=== PATIENT | female | born 1995 | race Caucasian/White ===

== ENCOUNTER 2017-01-31 20:56 | Emergency (ER) | payer BC ==
[2017-01-31 21:17] VITALS: BP 114/71
[2017-01-31] MEDS ORDERED: HYDROcodone/ACETAMIN 5-325 MG* 1 TAB PO ONE (21:55)
[2017-01-31] MEDS ORDERED: Amoxicillin CAP* 500 MG PO ONE (21:56)
--- NOTE | 2017-01-31 22:03 | UC ---
Throat Pain/Nasal Percy HPI - HPI Summary HPI Summary: ST with swollen lymph nodes, fever, malaise starting 2-3 days ago. Was seen at PCP yesterday, had negative RST and negative monospot, was put on a z-arturo. Feeling worse today. 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 Negative: Sinus Discomfort, Nasal Discharge - Allergies/Home Medications Allergies/Adverse Reactions: Allergies Allergy/AdvReac Type Severity Reaction Status Date / Time No Known Allergies Allergy Verified 01/31/17 21:17 Home Medications: Home Medications FLUoxetine CAP* [Prozac CAP*] 10 mg PO DAILY 01/31/17 [History Confirmed ] Ibuprofen TAB* [Advil TAB*] 400 mg PO PRN 01/31/17 [History] PMH/Surg Hx/FS Hx/Imm Hx Previously Healthy: Yes - Surgical History Surgical History: None - Family History Known Family History: Negative: Blood Disorder - Social History Lives: With Family Alcohol Use: None Substance Use Type: None Smoking Status (MU): Never Smoked Tobacco - Immunization History Vaccination Up to Date: Yes Review of Systems Constitutional: Fever, Chills, Fatigue Skin: Negative Eyes: Negative ENT: Sore Throat Respiratory: Negative Cardiovascular: Negative Gastrointestinal: Negative Genitourinary: Negative Motor: Negative Neurovascular: Negative Musculoskeletal: Negative Neurological: Negative Psychological: Negative All Other Systems Reviewed And Are Negative: Yes Physical Exam Triage Information Reviewed: Yes Appearance: Well-Appearing, Pain Distress - mod Vital Signs: Initial Vital Signs Temp 97.2 F 01/31/17 21:13 Pulse 120 01/31/17 21:13 Resp 16 01/31/17 21:13 BP 114/71 01/31/17 21:13 Pulse Ox 98 01/31/17 21:13 Vital Signs Reviewed: Yes Eye Exam: Normal Eyes: Positive: Conjunctiva Clear ENT: Positive: Pharyngeal erythema, TMs normal, Tonsillar swelling, Muffled/ hoarse voice - muffled voice Dental Exam: Normal Neck: Positive: Enlarged Nodes @ - tonsillar Respiratory Exam: Normal Respiratory: Positive: Chest non-tender, Lungs clear, Normal breath sounds, No respiratory distress, No accessory muscle use Cardiovascular: Positive: No Murmur, Tachycardia Musculoskeletal Exam: Normal Neurological Exam: Normal Neurological: Positive: Alert Psychological Exam: Normal Skin Exam: Normal Throat Pain/Nasal Course/Dx - Differential Dx/Diagnosis Provider Diagnoses: tonsillitis Discharge - Discharge Plan Condition: Stable Disposition: HOME Prescriptions: Amoxicillin (*) [Amoxicillin 875 MG (*)] 875 mg PO BID #13 tab Patient Education Materials: Tonsillitis (ED) Referrals: Jose G Denney MD [Primary Care Provider] - Additional Instructions: Your rapid strep here was also negative -- combined with not responding to the original antibiotic, it is very likely you do not have strep. I suspect mononucleosis, however you may need to wait another week before definitive bloodwork can be done. Go to the emergency department if you have difficulty with breathing or if you cannot swallow food or liquids. You should also be seen if your fevers are worsening in length and intensity or if you are feeling significantly worse in any way.
== END 2017-01-31 22:12 | disposition home or self-care (01) ==
LOC: UCEAST 20:56
DX: J03.90 Acute tonsillitis, unspecified (principal)
CPT/HCPCS: 87070; 87651; 99212; A9270-GY; G0463

== ENCOUNTER 2017-08-05 20:43 | Emergency (ER) | payer BC ==
--- NOTE | 2017-08-05 20:46 | UC ---
Throat Pain/Nasal Percy HPI - HPI Summary HPI Summary: 21 year old female presents with complains of sinus congestion, sore throat and tonsilar swelling - History of Current Complaint Stated Complaint: THROAT PAIN Time Seen by Provider: 08/05/17 20:45 Hx Obtained From: Patient Hx Last Menstrual Period: NOW ?: Yes Onset/Duration: Sudden Onset Severity: Moderate Pain Scale Used: 0-10 Numeric - 5 Cough: Nonproductive Associated Signs & Symptoms: Positive: Dysphagia - Allergies/Home Medications Allergies/Adverse Reactions: Allergies Allergy/AdvReac Type Severity Reaction Status Date / Time No Known Allergies Allergy Verified 01/31/17 21:17 PMH/Surg Hx/FS Hx/Imm Hx Previously Healthy: Yes - Surgical History Surgical History: None - Family History Known Family History: Negative: Blood Disorder - Social History Alcohol Use: None Substance Use Type: None Smoking Status (MU): Never Smoked Tobacco - Immunization History Vaccination Up to Date: Yes Review of Systems Constitutional: Negative Skin: Negative Eyes: Negative ENT: Sore Throat, Nasal Discharge, Sinus Congestion, Sinus Pain/Tenderness Respiratory: Negative Cardiovascular: Negative Gastrointestinal: Negative Genitourinary: Negative Motor: Negative Neurovascular: Negative Musculoskeletal: Negative Neurological: Negative Psychological: Negative All Other Systems Reviewed And Are Negative: Yes Physical Exam Triage Information Reviewed: Yes Vital Signs Reviewed: Yes Eye Exam: Normal ENT: Positive: Pharyngeal erythema, Nasal congestion, Nasal drainage, Tonsillar swelling - left, Sinus tenderness Dental Exam: Normal Neck exam: Normal Neck: Positive: 1 Respiratory Exam: Normal Cardiovascular Exam: Normal Abdominal Exam: Normal Musculoskeletal Exam: Normal Neurological Exam: Normal Psychological Exam: Normal Skin Exam: Normal Throat Pain/Nasal Course/Dx - Differential Dx/Diagnosis Provider Diagnoses: left tonsilar swelling. pharyngitis. sinusitis Discharge - Discharge Plan Condition: Stable Disposition: HOME Prescriptions: Amoxicillin PO (*) [Amoxicillin 875 MG (*)] 875 mg PO BID #20 tab LoraTADine TAB(NF) [Claritin 10 MG TAB(NF)] 10 mg PO DAILY #30 tab Magic M W2 Roby/Maal/Nyst/Lido* 5 ml SWISH SPIT QID PRN #120 ml PRN Reason: Pain Methylprednisolone [Medrol Dosepak 4 MG*] 4 mg PO .SEE SHANTEL INSTRUCTION #21 tab Patient Education Materials: Pharyngitis (ED) Referrals: Jose G Denney MD [Medical Doctor] -
[2017-08-05 20:52] VITALS: BP 111/65
[2017-08-05] MEDS ORDERED: Amoxicillin PO (*) 500 MG CAP PO ONE ×2 (21:32→21:38)
[2017-08-05] MEDS ORDERED: LoraTADine TAB(NF) 10 MG TAB (AUTOSUB to CETIRIZINE) PO ONE ×2 (21:33→21:38)
[2017-08-05] MEDS ORDERED: Lidocaine 2% VISCOUS* 15 ML UDC SWISH SPIT ONE ×2 (21:33→21:37)
[2017-08-05] MEDS ORDERED: predniSONE TAB* 10 MG PO ONE ×2 (21:33→21:40)
[2017-08-05] MEDS ORDERED: Al Hydrox/Mg Hydrox/Simet LIQ* 30 ML UDC PO ONE ×2 (21:34→21:39)
--- NOTE | 2017-08-08 17:19 | ED ---
Progress - Progress Note Progress Note: normal rocío. can stop abx.
== END 2017-08-05 21:50 | disposition home or self-care (01) ==
LOC: UCEAST 20:43
DX: O99.89 Other specified diseases and conditions complicating pregnancy, childbirth and the puerperium (principal); J02.9 Acute pharyngitis, unspecified; J32.9 Chronic sinusitis, unspecified
CPT/HCPCS: 87070; 87651; 99212; A9270-GY; G0463; J7512

== ENCOUNTER 2018-06-11 09:26 | Emergency (ER) | payer BC ==
[2018-06-11 09:36] VITALS: BP 124/61
--- NOTE | 2018-06-11 10:13 | UC ---
Throat Pain/Nasal Percy HPI - HPI Summary HPI Summary: 22 yo WF c/o throat pain x 1 day, denies f/c/body aches/cough - History of Current Complaint Chief Complaint: UCGeneralIllness Stated Complaint: THROAT COMPLAINT Time Seen by Provider: 06/11/18 09:27 Hx Obtained From: Patient Hx Last Menstrual Period: 3 weeks ago Onset/Duration: Sudden Onset Severity: Moderate Pain Intensity: 5 - Allergies/Home Medications Allergies/Adverse Reactions: Allergies Allergy/AdvReac Type Severity Reaction Status Date / Time No Known Allergies Allergy Verified 06/11/18 09:34 Home Medications: Home Medications Iron 1 dose PO DAILY 06/11/18 [History Confirmed 06/11/18] PMH/Surg Hx/FS Hx/Imm Hx Previously Healthy: Yes - Surgical History Surgical History: None - Family History Known Family History: Negative: Blood Disorder - Social History Alcohol Use: Weekly Substance Use Type: None Smoking Status (MU): Never Smoked Tobacco - Immunization History Vaccination Up to Date: Yes Review of Systems Constitutional: Negative Skin: Negative Eyes: Negative ENT: Sore Throat Respiratory: Negative Cardiovascular: Negative Gastrointestinal: Negative Genitourinary: Negative Motor: Negative Neurovascular: Negative Musculoskeletal: Negative Neurological: Negative Psychological: Negative All Other Systems Reviewed And Are Negative: Yes Physical Exam - Summary Physical Exam Summary: Vital Signs Reviewed: Yes Appearance: Positive: Well-Appearing Skin: Positive: Warm Head/Face: Positive: Normal Head/Face Inspection Eyes: Positive: EOMI, CATINA ENT: Positive: Hearing grossly normal, Pharynx mildly erythematous w/o exudates , TMs normal Neck: Positive: Supple, No Lymphadenopathy Respiratory/Lung Sounds: Positive: Clear to Auscultation Cardiovascular: Positive: RRR, S1, S2 Abdomen Description: Positive: Nontender, Soft Bowel Sounds: Positive: Present Musculoskeletal: Positive: Normal Neurological: Positive: CN Intact II-III Psychiatric: Positive: Normal Vital Signs: Initial Vital Signs Temp 36.6 C 06/11/18 09:28 Pulse 81 06/11/18 09:28 Resp 16 06/11/18 09:28 BP 124/61 06/11/18 09:28 Pulse Ox 98 06/11/18 09:28 Throat Pain/Nasal Course/Dx - Course Assessment/Plan: Rapid strep neg - Differential Dx/Diagnosis Provider Diagnoses: acute pharyngitis Discharge - Sign-Out/Discharge Documenting (check all that apply): Patient Departure All imaging exams completed and their final reports reviewed: No Studies - Discharge Plan Condition: Stable Disposition: HOME Patient Education Materials: Pharyngitis (ED) Referrals: Tammy Calvin [Primary Care Provider] - - Billing Disposition and Condition Condition: STABLE Disposition: Home
== END 2018-06-11 10:14 | disposition home or self-care (01) ==
LOC: UCEAST 09:26
DX: J02.9 Acute pharyngitis, unspecified (principal)
CPT/HCPCS: 87070; 87651; 99211; G0463

== ENCOUNTER 2019-02-10 15:32 | Emergency (ER) | payer BC ==
[2019-02-10 15:57] VITALS: BP 116/72
[2019-02-10] MEDS ORDERED: Acetaminophen TAB* 325 MG PO ONE (16:02)
--- NOTE | 2019-02-10 17:18 | UC ---
Throat Pain/Nasal Percy HPI - HPI Summary HPI Summary: ONSET OF SORE THROAT AND PAIN WITH SWALLOWING LAST NIGHT. HAS FEVER AND FEELS FATIGUED. STARTED HER MENSTRUAL CYCLE YESTERDAY FOR THE FIRST TIME IN 6 YEARS AFTER COMING OFF HER CONTROL ONE MONTH AGO. STATES SHE FEELS HER OVERALL MALAISE AND FATIGUE ARE DUE TO THIS BUT IS CONCERNED ABOUT STREP THROAT. - History of Current Complaint Chief Complaint: UCGeneralIllness Stated Complaint: POSS STREP Time Seen by Provider: 02/10/19 16:02 Hx Obtained From: Patient Hx Last Menstrual Period: [id number] Onset/Duration: Gradual Onset, Lasting Hours, Still Present Severity: Moderate Pain Intensity: 7 Pain Scale Used: 0-10 Numeric Cough: None Associated Signs & Symptoms: Positive: Fever - Allergies/Home Medications Allergies/Adverse Reactions: Allergies Allergy/AdvReac Type Severity Reaction Status Date / Time No Known Allergies Allergy Verified 02/10/19 15:57 Home Medications: Home Medications Ibuprofen TAB* [Advil TAB*] 200 mg PO Q6H PRN 02/10/19 [History Confirmed ] PMH/Surg Hx/FS Hx/Imm Hx Previously Healthy: Yes - Surgical History Surgical History: None - Family History Known Family History: Positive: Non-Contributory - Social History Alcohol Use: Weekly Substance Use Type: None Smoking Status (MU): Never Smoked Tobacco - Immunization History Vaccination Up to Date: Yes Review of Systems All Other Systems Reviewed And Are Negative: Yes Constitutional: Positive: Fever, Fatigue ENT: Positive: Sore Throat Respiratory: Positive: Negative Cardiovascular: Positive: Negative Gastrointestinal: Positive: Negative Physical Exam Triage Information Reviewed: Yes Appearance: Well-Appearing, No Pain Distress, Well-Nourished Vital Signs: Initial Vital Signs Temp 102.0 F 02/10/19 15:52 Pulse 130 02/10/19 15:52 Resp 24 02/10/19 15:52 BP 116/72 02/10/19 15:52 Pulse Ox 98 02/10/19 15:52 Laboratory Tests 02/10/19 16:08 Group A Strep Rapid Negative Vital Signs Reviewed: Yes Eyes: Positive: Conjunctiva Clear ENT: Positive: Hearing grossly normal, TMs normal, Tonsillar swelling, Tonsillar exudate. Negative: Pharyngeal erythema, Hoarse voice Neck: Positive: Supple, Tenderness @ - MILDLY TENDER RIGHT SPFL CERVICAL LAD, Enlarged Nodes @ - RIGHT SPFL CERVICAL LAD Respiratory Exam: Normal Cardiovascular: Positive: Tachycardia Abdomen Description: Positive: Nontender, Soft Musculoskeletal: Positive: No Edema Neurological: Positive: Alert Psychological: Positive: Age Appropriate Behavior Skin: Negative: Rashes Throat Pain/Nasal Course/Dx - Course Course Of Treatment: STREP TEST NEGATIVE. REPEAT TEMP 1 HOUR AFTER 650 MG ACETAMINOPHEN 99.7. HEART RATE 100 BPM. PATIENT STATES SHE IS FEELING MUCH BETTER. SORE THROAT GONE. DISCUSSED POSSIBILITY OF INFECTIOUS MONONUCLEOSIS GIVEN PRESENTATION WITH FEVER, ENLARGED TONSILS AND CERVICAL LAD. ALSO DISCUSSED HIGH FALSE- NEGATIVE RATE EARLY IN THE COURSE OF ILLNESS. PATIENT OPTS TO HOLD OFF ON BLOOD TESTING FOR NOW WHICH I THINK IS REASONABLE. WILL TREAT CONSERVATIVELY WITH REST, HYDRATION AND OTC MEDS NEEDED. ADVISED FOLLOW-UP IF SHE IS NOT FEELING IMPROVED OVER THE NEXT COUPLE OF MICHAEL ks. - Differential Dx/Diagnosis Provider Diagnosis: Viral tonsillitis Discharge - Sign-Out/Discharge Documenting (check all that apply): Patient Departure All imaging exams completed and their final reports reviewed: No Studies - Discharge Plan Condition: Stable Disposition: HOME Patient Education Materials: Pharyngitis (ED), Tonsillitis (ED) Referrals: Annette Shah MD [Primary Care Provider] - If Needed Additional Instructions: STREP TEST NEGATIVE. YOUR SYMPTOMS ARE LIKELY VIRALLY MEDIATED AND SHOULD RESOLVE ON THEIR OWN WITH TIME. NO INDICATION FOR ANTIBIOTICS AT PRESENT. REST, HYDRATE, OTC MEDS NEEDED. SEEK FOLLOW-UP IF YOU ARE NOT IMPROVING OVER THE NEXT 1-2 WEEKS. RECOMMEND: IBUPROFEN 600MG EVERY 6HRS NEEDED ACETAMINOPHEN 650MG EVERY 6 HRS NEEDED - Billing Disposition and Condition Condition: STABLE Disposition: Home
== END 2019-02-10 17:25 | disposition home or self-care (01) ==
LOC: UCEAST 15:32
DX: J03.80 Acute tonsillitis due to other specified organisms (principal); B97.89 Other viral agents as the cause of diseases classified elsewhere
CPT/HCPCS: 87651; 99212; A9270-GY; G0463